=== PATIENT | female | born 1965 | race Caucasian/White ===

== ENCOUNTER 2016-12-20 15:21 | Observation (INO) ==
[2016-12-20] MEDS ORDERED: Aspirin 325 MG TABLET PO ONE (15:35)
--- NOTE | 2016-12-20 15:59 | Emergency Department Note ---
Disposition Clinical Impression: Chest pain of uncertain etiology Disposition: Admitted As Inpatient Condition: Fair Referrals: Ghazal Zepeda CNP [Primary Care Provider] - Forms: ED Satisfaction Letter Chest Pain HPI - General Chief Complaint: ED Chest Pain Stated Complaint: chest pain Time Seen by Provider: 12/20/16 15:28 Source: patient Limitations: no limitations Vital Signs Reviewed: Yes Nursing Notes Reviewed: Yes - History of Present Illness HPI Narrative: 51-year-old female presents to the ED 1.5 hours after onset (14:00) of acute substernal chest pressure radiating into the left jaw. Onset was at rest, pain is moderate to severe, associated with diaphoresis, nausea, and general fatigue. Pain has been constant since onset. 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 Denies radiation to mid back, tearing sensation, vomiting, shortness of air, syncope, or leg edema. Has had prior chest pains in the past with negative workup. No known cardiac history. No known hypertension, diabetes, is not a smoker, and does not have hyperlipidemia to her knowledge. Denies history of DVT or PE, no recent surgeries, no hemoptysis, no known active malignancy. Well 's Score for PE low risk. PERC positive. Pertinent family history includes father passing at the age of 59 cardiac arrest. Severity scale (1-10): 5 - Related Data Home Medications Medication Instructions Recorded Confirmed Citalopram 11/21/14 11/21/14 Levothyroxine 11/21/14 11/21/14 Wellbutrin 11/21/14 11/21/14 Previous Rx's Medication Instructions Recorded Ciprofloxacin HCl [Cipro] 500 mg PO BID 7 Days tablet 11/21/14 Promethazine [Phenergan] 25 mg PO Q6HR PRN #15 tablet 11/21/14 Ciprofloxacin [Cipro] 500 mg PO BID 7 Days tablet 05/19/15 Phenazopyridine HCl [Pyridium] 200 mg PO TID 2 Days tab 05/19/15 Acetaminophen [Tylenol] 650 mg PO Q6HR PRN #10 tablet 07/16/15 Ciprofloxacin [Cipro] 500 mg PO BID 10 Days tablet 07/16/15 Phenazopyridine HCl [Pyridium] 200 mg PO TID 2 Days tab 07/16/15 Ondansetron ODT [Zofran ODT] 4 mg SL Q8HR PRN #30 tab.rapdis 07/19/15 cephALEXin [Keflex] 500 mg PO BID #10 capsule 07/19/15 Albuterol Sulfate [Albuterol 2 puff IH QID 2 Days inhaler 06/28/16 Inhaler] Benzonatate [Tessalon] 200 mg PO TID PRN #20 capsule 06/28/16 Doxycycline 100 mg PO BID #14 capsule 06/28/16 predniSONE [PredniSONE] 20 mg PO BID 5 Days tablet 06/28/16 Ibuprofen [Motrin] 600 mg PO Q6HR PRN #20 tab 10/29/16 Allergies Allergy/AdvReac Type Severity Reaction Status Date / Time Sulfa (Sulfonamide Allergy See Verified 11/19/14 21:08 Antibiotics) Comments sulfamethoxazole Allergy See Verified 11/19/14 21:08 [From Bactrim] Comments trimethoprim [From Bactrim] Allergy See Verified 11/19/14 21:08 Comments Review of Systems: As Per HPI Chest Pain PMH - Past Medical History Medical history: Reports: non-contributory, thyroid disease (No recent medication changes or dose adjustments), other Surgical history: Reports: appendectomy, breast surgery, cholecystectomy, hysterectomy Psychiatric history: Reports: no psych history - Social History Smoking Status: Never smoker Alcohol use: Reports: none Drug use: Reports: none Physical Exam - General Limitations: no limitations General appearance: alert - Head Head exam: atraumatic - Eye Eye exam: Present: PERRL, EOMI. Absent: scleral icterus, conjunctival injection - ENT ENT exam: mucous membranes moist - Chest Chest inspection: Present: symmetric chest wall rise - Respiratory Respiratory exam: Present: normal lung sounds bilaterally. Absent: respiratory distress, wheezes, stridor, accessory muscle use - Cardiovascular Cardiovascular exam: Present: regular rate, normal rhythm. Absent: systolic murmur, diastolic murmur, +S3, +S4 - Abdominal Exam Abdominal exam: Present: soft, Non-Tender. Absent: distention, guarding, rebound, rigidity - Extremities Exam Extremities exam: Present: pedal edema - Back Exam Back exam: Absent: tenderness - Neurological Exam Neurological exam: Present: alert, oriented X3 - Psychiatric Psychiatric exam: Present: normal affect - Skin Skin exam: Present: normal color. Absent: cyanosis, pallor, mottled Course Course Narrative: History concerning for ACS; initiated ACS workup including EKG, troponin, chest x-ray. Sublingual nitro times two relieved pain. Given 1L bolus of normal saline. Initial and repeat EKG negative. Troponin negative. Chest x-ray negative. PERC positive due to SpO2 of 93%; d-dimer negative. Patient's blood pressure has been borderline low throughout ED course. - Reevaluation(s) Reevaluation #1: Initial chest pain did resolve after 2 doses of sublingual nitro; chest pain returned after about an hour. Blood pressures are stable, patient appearances stable as well, heart sounds normal, lung sounds normal, pulses 2+ bilaterally in upper & lower extremities. Vital Signs Temperature 98.3 F 12/20/16 15:23 Pulse Rate 92 12/20/16 15:23 Respiratory Rate 16 12/20/16 15:23 Blood Pressure 136/94 12/20/16 15:23 O2 Sat by Pulse Oximetry 93 12/20/16 15:23 Temperature 98.3 F 12/20/16 15:23 Pulse Rate 83 12/20/16 17:23 Respiratory Rate 16 12/20/16 17:23 Blood Pressure 102/69 12/20/16 17:23 O2 Sat by Pulse Oximetry 93 12/20/16 17:23 Oxygen Delivery Oxygen Delivery Room Air Chest Pain - MDM Narrative Medical decision making narrative: I examined this patient and my medical decision-making was reviewed with the Resident Physician. I agree with the documented findings, disposition and treatment plan as described except to the extent set forth below. Patient seen and evaluated by Dr. Dang and myself, I agree with his evaluation and management plan I supervised the care of the patient's stay. Patient had chest pain left-sided her chest going up into her neck that was a pressure sensation while she was driving her car. She said she had similar pain just in her arm a week ago and then once before she had this too. She has not had a medically evaluated she said. She does not take aspirin she is 89 control pills she does not smoke she does have a dad had first [place] and at the age of 61. She states that she does not do any drugs of abuse. Regular cardiac workup on her and then reassess. She may need admission. She is in agreement with this initial plan. Chest X-Ray 12/20/16 16:21 IMPRESSION: No acute process. D/ / Alec Camacho MD / Alec Camacho MD Interpreting Provider: Alec Camacho MD Patient's initial EKG done at 1527 hrs. shows a sinus rhythm, rate 83, QRS is 78 , QTC is 394, Q waves in the inferior leads, no signs of acute ischemia, compared to an EKG that was done in 2016 shows no changes except for Q waves in the inferior leads are more prominent. Repeat EKG after nitroglycerin trial and her pain has decreased. This was done at 1710 hrs.: Sinus rhythm rate 80, has the same prominent Q waves in the inferior leads but no signs of acute ischemia QRS is 81 and QTC is 412. She is getting finish up her nitroglycerin trout this time. 19:13 -- patient tells me chest pain has resumed. Patient generally feels fatigued. Denies any other new symptoms at this time including shortness of air. Despite heart score of 3, patient would benefit from observation for ACS rule out. Discussed this with patient who is agreeable to this plan. Spoke with hospitalist at 1945 who states he will see and admit patient for r/o [place]. - Lab Data Lab results reviewed: Yes I reviewed the patient's lab results. Lab results narrative: Laboratory Last Values WBC 6.1 K/mcL (4.3-11.1) 12/20/16 17:13 RBC 4.59 M/mcL (3.82-4.97) 12/20/16 17:13 Hgb 13.1 g/dL (11.5-15.4) 12/20/16 17:13 Hct 41.3 % (35.3-44.9) 12/20/16 17:13 MCV 90.0 fL (83.0-100.0) 12/20/16 17:13 MCH 28.5 pg (28.0-33.3) 12/20/16 17:13 MCHC 31.7 g/dL (31.6-35.5) 12/20/16 17:13 RDW 13.3 % (11.5-14.5) 12/20/16 17:13 Plt Count 287 K/mcL (140-400) 12/20/16 17:13 MPV 10.0 fL (9.4-12.4) 12/20/16 17:13 Immature Gran % 0.2 % (0-4) 12/20/16 17:13 Seg Neutrophils % 51.8 % 12/20/16 17:13 Lymphocytes % 37.3 % 12/20/16 17:13 Monocytes % 6.7 % 12/20/16 17:13 Eosinophils % 3.3 % 12/20/16 17:13 Basophils % 0.7 % 12/20/16 17:13 Neutrophils # 3.2 K/mcL (1.6-8.9) 12/20/16 17:13 Lymphocytes # 2.3 K/mcL (0.6-4.6) 12/20/16 17:13 Monocytes # 0.4 K/mcL (0.0-1.3) 12/20/16 17:13 Eosinophils # 0.2 K/mcL (0.0-0.6) 12/20/16 17:13 Basophils # 0.0 K/mcL (0.0-0.2) 12/20/16 17:13 D-Dimer 361 ng/mLFEU (0-500) 12/20/16 15:35 Sodium 141 mEq/L (136-145) 12/20/16 17:14 Potassium 4.0 mEq/L (3.5-4.5) 12/20/16 17:14 Chloride 107 mEq/L (98-109) 12/20/16 17:14 Carbon Dioxide 22 mEq/L (19-29) 12/20/16 17:14 BUN 23 mg/dL (7-20) H 12/20/16 17:14 Creatinine 1.08 mg/dL (0.57-1.11) 12/20/16 17:14 Est GFR ( Amer) > 60 (> 60) 12/20/16 17:14 Est GFR (Non-Af Amer) 54 (> 60) L 12/20/16 17:14 BUN/Creatinine Ratio 21 (6-26) 12/20/16 17:14 Glucose 95 mg/dL (70-99) 12/20/16 17:14 Calculated Osmolality 295 (280-300) 12/20/16 17:14 Calcium 9.1 mg/dL (8.6-10.8) 12/20/16 17:14 Troponin I 0.00 ng/mL (0-0.03) 12/20/16 15:45 Urine Color Yellow (Yellow) 12/20/16 18:00 Urine Clarity Clear (Clear) 12/20/16 18:00 Urine pH 6.0 pH Units (5.0-8.0) 12/20/16 18:00 Ur Specific [place] 1.025 (1.010-1.025) 12/20/16 18:00 Urine Protein Negative mg/dL (Neg-Trace) 12/20/16 18:00 Urine Glucose (UA) Normal mg/dL (Normal) 12/20/16 18:00 Urine Ketones Negative mg/dL (Negative) 12/20/16 18:00 Urine Blood Negative (Negative) 12/20/16 18:00 Urine Nitrite Negative (Negative) 12/20/16 18:00 Urine Bilirubin Negative (Negative) 12/20/16 18:00 Urine Urobilinogen Normal mg/dL (Normal) 12/20/16 18:00 Ur Leukocyte Esterase Negative (Negative) 12/20/16 18:00 Ur Culture Indicated? NO (NO) 12/20/16 18:00 Laboratory Last Values WBC 6.1 K/mcL (4.3-11.1) 12/20/16 17:13 RBC 4.59 M/mcL (3.82-4.97) 12/20/16 17:13 Hgb 13.1 g/dL (11.5-15.4) 12/20/16 17:13 Hct 41.3 % (35.3-44.9) 12/20/16 17:13 MCV 90.0 fL (83.0-100.0) 12/20/16 17:13 MCH 28.5 pg (28.0-33.3) 12/20/16 17:13 MCHC 31.7 g/dL (31.6-35.5) 12/20/16 17:13 RDW 13.3 % (11.5-14.5) 12/20/16 17:13 Plt Count 287 K/mcL (140-400) 12/20/16 17:13 MPV 10.0 fL (9.4-12.4) 12/20/16 17:13 Immature Gran % 0.2 % (0-4) 12/20/16 17:13 Seg Neutrophils % 51.8 % 12/20/16 17:13 Lymphocytes % 37.3 % 12/20/16 17:13 Monocytes % 6.7 % 12/20/16 17:13 Eosinophils % 3.3 % 12/20/16 17:13 Basophils % 0.7 % 12/20/16 17:13 Neutrophils # 3.2 K/mcL (1.6-8.9) 12/20/16 17:13 Lymphocytes # 2.3 K/mcL (0.6-4.6) 12/20/16 17:13 Monocytes # 0.4 K/mcL (0.0-1.3) 12/20/16 17:13 Eosinophils # 0.2 K/mcL (0.0-0.6) 12/20/16 17:13 Basophils # 0.0 K/mcL (0.0-0.2) 12/20/16 17:13 D-Dimer 361 ng/mLFEU (0-500) 12/20/16 15:35 Sodium 141 mEq/L (136-145) 12/20/16 17:14 Potassium 4.0 mEq/L (3.5-4.5) 12/20/16 17:14 Chloride 107 mEq/L (98-109) 12/20/16 17:14 Carbon Dioxide 22 mEq/L (19-29) 12/20/16 17:14 BUN 23 mg/dL (7-20) H 12/20/16 17:14 Creatinine 1.08 mg/dL (0.57-1.11) 12/20/16 17:14 Est GFR ( Amer) > 60 (> 60) 12/20/16 17:14 Est GFR (Non-Af Amer) 54 (> 60) L 12/20/16 17:14 BUN/Creatinine Ratio 21 (6-26) 12/20/16 17:14 Glucose 95 mg/dL (70-99) 12/20/16 17:14 Calculated Osmolality 295 (280-300) 12/20/16 17:14 Calcium 9.1 mg/dL (8.6-10.8) 12/20/16 17:14 Troponin I 0.00 ng/mL (0-0.03) 12/20/16 15:45 Urine Color Yellow (Yellow) 12/20/16 18:00 Urine Clarity Clear (Clear) 12/20/16 18:00 Urine pH 6.0 pH Units (5.0-8.0) 12/20/16 18:00 Ur Specific [place] 1.025 (1.010-1.025) 12/20/16 18:00 Urine Protein Negative mg/dL (Neg-Trace) 12/20/16 18:00 Urine Glucose (UA) Normal mg/dL (Normal) 12/20/16 18:00 Urine Ketones Negative mg/dL (Negative) 12/20/16 18:00 Urine Blood Negative (Negative) 12/20/16 18:00 Urine Nitrite Negative (Negative) 12/20/16 18:00 Urine Bilirubin Negative (Negative) 12/20/16 18:00 Urine Urobilinogen Normal mg/dL (Normal) 12/20/16 18:00 Ur Leukocyte Esterase Negative (Negative) 12/20/16 18:00 Ur Culture Indicated? NO (NO) 12/20/16 18:00 Result diagrams: 12/20/16 17:13 12/20/16 17:14 Lab Results 12/20/16 12/20/16 12/20/16 Range/Units 15:35 15:45 17:13 WBC 6.1 (4.3-11.1) K/mcL RBC 4.59 (3.82-4.97) M/mcL Hgb 13.1 (11.5-15.4) g/dL Hct 41.3 (35.3-44.9) % MCV 90.0 (83.0-100.0) fL MCH 28.5 (28.0-33.3) pg MCHC 31.7 (31.6-35.5) g/dL RDW 13.3 (11.5-14.5) % Plt Count 287 (140-400) K/mcL MPV 10.0 (9.4-12.4) fL Immature Gran % 0.2 (0-4) % Seg Neutrophils % 51.8 % Lymphocytes % 37.3 % Monocytes % 6.7 % Eosinophils % 3.3 % Basophils % 0.7 % Neutrophils # 3.2 (1.6-8.9) K/mcL Lymphocytes # 2.3 (0.6-4.6) K/mcL Monocytes # 0.4 (0.0-1.3) K/mcL Eosinophils # 0.2 (0.0-0.6) K/mcL Basophils # 0.0 (0.0-0.2) K/mcL D-Dimer 361 (0-500) ng/mLFEU Sodium (136-145) mEq/L Potassium (3.5-4.5) mEq/L Chloride (98-109) mEq/L Carbon Dioxide (19-29) mEq/L BUN (7-20) mg/dL Creatinine (0.57-1.11) mg/dL Est GFR ( Amer) (> 60) Est GFR (Non-Af Amer) (> 60) BUN/Creatinine Ratio (6-26) Glucose (70-99) mg/dL Calculated Osmolality (280-300) Calcium (8.6-10.8) mg/dL Troponin I 0.00 (0-0.03) ng/mL 12/20/16 Range/Units 17:14 WBC (4.3-11.1) K/mcL RBC (3.82-4.97) M/mcL Hgb (11.5-15.4) g/dL Hct (35.3-44.9) % MCV (83.0-100.0) fL MCH (28.0-33.3) pg MCHC (31.6-35.5) g/dL RDW (11.5-14.5) % Plt Count (140-400) K/mcL MPV (9.4-12.4) fL Immature Gran % (0-4) % Seg Neutrophils % % Lymphocytes % % Monocytes % % Eosinophils % % Basophils % % Neutrophils # (1.6-8.9) K/mcL Lymphocytes # (0.6-4.6) K/mcL Monocytes # (0.0-1.3) K/mcL Eosinophils # (0.0-0.6) K/mcL Basophils # (0.0-0.2) K/mcL D-Dimer (0-500) ng/mLFEU Sodium 141 (136-145) mEq/L Potassium 4.0 (3.5-4.5) mEq/L Chloride 107 (98-109) mEq/L Carbon Dioxide 22 (19-29) mEq/L BUN 23 H (7-20) mg/dL Creatinine 1.08 (0.57-1.11) mg/dL Est GFR ( Amer) > 60 (> 60) Est GFR (Non-Af Amer) 54 L (> 60) BUN/Creatinine Ratio 21 (6-26) Glucose 95 (70-99) mg/dL Calculated Osmolality 295 (280-300) Calcium 9.1 (8.6-10.8) mg/dL Troponin I (0-0.03) ng/mL - Radiology Data Radiology results reviewed: Yes I reviewed the patient's radiology results. Chest X-Ray 12/20/16 16:21 IMPRESSION: No acute process. D/ / Alec Camacho MD / Alec Camacho MD Interpreting Provider: Aelc Camacho MD Chest X-Ray 12/20/16 16:21 IMPRESSION: No acute process. D/ / Alec Camacho MD / Alec Camacho MD Interpreting Provider: Alec Camacho MD Heart Score - Score History: Moderately Suspicious EKG: Normal Age: 45-65 Risk Factors: 1-2 risk factors Troponin: Less than normal limit HEART Score Total: 3
[2016-12-20] MEDS: Ondansetron 4 MG/2 ML VIAL IVP PRN (16:14)
[2016-12-20] MEDS: Nitroglycerin 0.4 MG TAB.SUBL SL PRN ×3 (16:15→17:24)
[2016-12-20] MEDS ORDERED: 0.9 % Sodium Chloride 1,000 ML IVC ONE (16:50)
[2016-12-20 17:18] LABS: Basophils % 0.7 %; Eosinophils # 0.2 K/mcL (0.0-0.6); Eosinophils % 3.3 %; Hematocrit 41.3 % (35.3-44.9); Hemoglobin 13.1 g/dL (11.5-15.4); Immature Granulocytes % 0.2 % (0-4); Lymphocytes # 2.3 K/mcL (0.6-4.6); Lymphocytes % 37.3 %; Mean Corpuscular HGB Conc 31.7 g/dL (31.6-35.5); Mean Corpuscular Hemoglobin 28.5 pg (28.0-33.3); Monocytes # 0.4 K/mcL (0.0-1.3); Monocytes % 6.7 %; Neutrophils # 3.2 K/mcL (1.6-8.9); Platelet Count 287 K/mcL (140-400); Red Blood Count 4.59 M/mcL (3.82-4.97); Red Cell Distribution Width 13.3 % (11.5-14.5); Segmented Neutrophils % 51.8 %
[2016-12-20 17:27] LABS: BUN/Creatinine Ratio 21 (6-26); Blood Urea Nitrogen 23 mg/dL (7-20); Calcium 9.1 mg/dL (8.6-10.8); Carbon Dioxide 22 mEq/L (19-29); Chloride 107 mEq/L (98-109); Glucose 95 mg/dL (70-99); Osmolality,Calculated 295 (280-300); Sodium 141 mEq/L (136-145); eGFR For African Americans > 60 (> 60); eGFR For Non-African Americans 54 (> 60)
[2016-12-20 18:19] LABS: Bilirubin,Urine Negative (Negative); Blood,Urine Negative (Negative); Clarity,Urine Clear (Clear); Color,Urine Yellow (Yellow); Glucose,Urine (UA) Normal (Normal); Ketones,Urine Negative (Negative); Leukocyte Esterase,Urine Negative (Negative); Nitrite,Urine Negative (Negative); Protein,Urine Negative (Neg-Trace); Specific Gravity,Urine 1.025 (1.010-1.025); Urobilinogen,Urine Normal (Normal)
--- NOTE | 2016-12-20 18:22 | Emergency Department Note ---
Disposition Clinical Impression: Chest pain of uncertain etiology Disposition: Admitted As Inpatient Condition: Fair General Adult HPI - General Chief complaint: ED Chest Pain Stated complaint: chest pain Time Seen by Provider: 12/20/16 15:28 Source: patient Limitations: no limitations Nursing Notes Reviewed: Yes Vital Signs Reviewed: Yes - History of Present Illness Pain Scale: 5 - Related Data Home Medications Medication Instructions Recorded Confirmed Citalopram 11/21/14 11/21/14 Levothyroxine 11/21/14 11/21/14 Wellbutrin 11/21/14 11/21/14 Previous Rx's Medication Instructions Recorded Ciprofloxacin HCl [Cipro] 500 mg PO BID 7 Days tablet 11/21/14 Promethazine [Phenergan] 25 mg PO Q6HR PRN #15 tablet 11/21/14 Ciprofloxacin [Cipro] 500 mg PO BID 7 Days tablet 05/19/15 Phenazopyridine HCl [Pyridium] 200 mg PO TID 2 Days tab 05/19/15 Acetaminophen [Tylenol] 650 mg PO Q6HR PRN #10 tablet 07/16/15 Ciprofloxacin [Cipro] 500 mg PO BID 10 Days tablet 07/16/15 Phenazopyridine HCl [Pyridium] 200 mg PO TID 2 Days tab 07/16/15 Ondansetron ODT [Zofran ODT] 4 mg SL Q8HR PRN #30 tab.rapdis 07/19/15 cephALEXin [Keflex] 500 mg PO BID #10 capsule 07/19/15 Albuterol Sulfate [Albuterol 2 puff IH QID 2 Days inhaler 06/28/16 Inhaler] Benzonatate [Tessalon] 200 mg PO TID PRN #20 capsule 06/28/16 Doxycycline 100 mg PO BID #14 capsule 06/28/16 predniSONE [PredniSONE] 20 mg PO BID 5 Days tablet 06/28/16 Ibuprofen [Motrin] 600 mg PO Q6HR PRN #20 tab 10/29/16 Allergies Allergy/AdvReac Type Severity Reaction Status Date / Time Sulfa (Sulfonamide Allergy See Verified 11/19/14 21:08 Antibiotics) Comments sulfamethoxazole Allergy See Verified 11/19/14 21:08 [From Bactrim] Comments trimethoprim [From Bactrim] Allergy See Verified 11/19/14 21:08 Comments Past Medical History - Past Medical History Medical history: Reports: thyroid disease, other Surgical history: Reports: appendectomy, breast surgery, cholecystectomy, hysterectomy Psychiatric history: Reports: no psych history - Social History Smoking Status: Never smoker Smokeless Tobacco Status: No Alcohol use: Reports: none Drug use: Reports: none Physical Exam - General Limitations: no limitations General appearance: alert Course Vital Signs Temperature 98.3 F 12/20/16 15:23 Pulse Rate 92 12/20/16 15:23 Respiratory Rate 16 12/20/16 15:23 Blood Pressure 136/94 12/20/16 15:23 O2 Sat by Pulse Oximetry 93 12/20/16 15:23 Temperature 98.3 F 12/20/16 15:23 Pulse Rate 74 12/20/16 20:00 Respiratory Rate 16 12/20/16 20:00 Blood Pressure 101/64 12/20/16 20:00 O2 Sat by Pulse Oximetry 96 12/20/16 20:00 Oxygen Delivery Oxygen Delivery Room Air Medical Decision Making - MDM Narrative Medical decision making narrative: I examined this patient and my medical decision-making was reviewed with the Resident Physician. I agree with the documented findings, disposition and treatment plan as described except to the extent set forth below. This is an update from a previous chart. Patient's pain free. She is low risk on well's score for PE and her d-dimer is normal. She is pain-free at this time. She has had a UTI in the past so we decided to go and check her urine also plan is to admit her to the hospital chest pain rule out ACS and make sure she does not have a UTI. She is in agreement with this plan. 1930 hrs.: Patient has pain-free at this time. She is can be admitted to the hospitalist service. Impressions chest pain rule out ACS. - Lab Data Result diagrams: 12/20/16 17:13 12/20/16 17:14 Lab Results 12/20/16 12/20/16 12/20/16 Range/Units 15:35 15:45 17:13 WBC 6.1 (4.3-11.1) K/mcL RBC 4.59 (3.82-4.97) M/mcL Hgb 13.1 (11.5-15.4) g/dL Hct 41.3 (35.3-44.9) % MCV 90.0 (83.0-100.0) fL MCH 28.5 (28.0-33.3) pg MCHC 31.7 (31.6-35.5) g/dL RDW 13.3 (11.5-14.5) % Plt Count 287 (140-400) K/mcL MPV 10.0 (9.4-12.4) fL Immature Gran % 0.2 (0-4) % Seg Neutrophils % 51.8 % Lymphocytes % 37.3 % Monocytes % 6.7 % Eosinophils % 3.3 % Basophils % 0.7 % Neutrophils # 3.2 (1.6-8.9) K/mcL Lymphocytes # 2.3 (0.6-4.6) K/mcL Monocytes # 0.4 (0.0-1.3) K/mcL Eosinophils # 0.2 (0.0-0.6) K/mcL Basophils # 0.0 (0.0-0.2) K/mcL D-Dimer 361 (0-500) ng/mLFEU Sodium (136-145) mEq/L Potassium (3.5-4.5) mEq/L Chloride (98-109) mEq/L Carbon Dioxide (19-29) mEq/L BUN (7-20) mg/dL Creatinine (0.57-1.11) mg/dL Est GFR ( Amer) (> 60) Est GFR (Non-Af Amer) (> 60) BUN/Creatinine Ratio (6-26) Glucose (70-99) mg/dL Calculated Osmolality (280-300) Calcium (8.6-10.8) mg/dL Troponin I 0.00 (0-0.03) ng/mL Urine Color (Yellow) Urine Clarity (Clear) Urine pH (5.0-8.0) pH Units Ur Specific [place] (1.010-1.025) Urine Protein (Neg-Trace) mg/dL Urine Glucose (UA) (Normal) mg/dL Urine Ketones (Negative) mg/dL Urine Blood (Negative) Urine Nitrite (Negative) Urine Bilirubin (Negative) Urine Urobilinogen (Normal) mg/dL Ur Leukocyte Esterase (Negative) Ur Culture Indicated? (NO) 12/20/16 12/20/16 Range/Units 17:14 18:00 WBC (4.3-11.1) K/mcL RBC (3.82-4.97) M/mcL Hgb (11.5-15.4) g/dL Hct (35.3-44.9) % MCV (83.0-100.0) fL MCH (28.0-33.3) pg MCHC (31.6-35.5) g/dL RDW (11.5-14.5) % Plt Count (140-400) K/mcL MPV (9.4-12.4) fL Immature Gran % (0-4) % Seg Neutrophils % % Lymphocytes % % Monocytes % % Eosinophils % % Basophils % % Neutrophils # (1.6-8.9) K/mcL Lymphocytes # (0.6-4.6) K/mcL Monocytes # (0.0-1.3) K/mcL Eosinophils # (0.0-0.6) K/mcL Basophils # (0.0-0.2) K/mcL D-Dimer (0-500) ng/mLFEU Sodium 141 (136-145) mEq/L Potassium 4.0 (3.5-4.5) mEq/L Chloride 107 (98-109) mEq/L Carbon Dioxide 22 (19-29) mEq/L BUN 23 H (7-20) mg/dL Creatinine 1.08 (0.57-1.11) mg/dL Est GFR ( Amer) > 60 (> 60) Est GFR (Non-Af Amer) 54 L (> 60) BUN/Creatinine Ratio 21 (6-26) Glucose 95 (70-99) mg/dL Calculated Osmolality 295 (280-300) Calcium 9.1 (8.6-10.8) mg/dL Troponin I (0-0.03) ng/mL Urine Color Yellow (Yellow) Urine Clarity Clear (Clear) Urine pH 6.0 (5.0-8.0) pH Units Ur Specific [place] 1.025 (1.010-1.025) Urine Protein Negative (Neg-Trace) mg/dL Urine Glucose (UA) Normal (Normal) mg/dL Urine Ketones Negative (Negative) mg/dL Urine Blood Negative (Negative) Urine Nitrite Negative (Negative) Urine Bilirubin Negative (Negative) Urine Urobilinogen Normal (Normal) mg/dL Ur Leukocyte Esterase Negative (Negative) Ur Culture Indicated? NO (NO)
[2016-12-20] MEDS ORDERED: *HR* HYDROmorphone (PF) 1 MG/ML SYRINGE IVP ONE (18:59)
[2016-12-20] MEDS ORDERED: Acetaminophen 325 MG TABLET PO PRN (19:55)
[2016-12-20] MEDS ORDERED: *HR* HYDROcodone/Acet 5/325 mg TABLET PO PRN (19:55)
[2016-12-20] MEDS ORDERED: Naloxone 0.4 MG/ML INJ IVP PRN (19:55)
[2016-12-20] MEDS ORDERED: *HR* Morphine 2 MG/ML SYRINGE IVP PRN (19:55)
--- NOTE | 2016-12-20 21:00 | Internal Med History&Physical ---
Date of Encounter: 12/20/16 Time of Encounter: 20:00 Assessment and Plan (1) Chest pain Current visit: Yes Status: Acute Will admit the pt into Tele for observation Will place her on clinical research monitor check serial troponin so far negative troponin EKG reviewed - showing NSR with VR 83, No ST T changes will start her on ASA, Nitro PRN and Morphine IV PRN for pain Will check FLP in AM Will get stress test in AM since pt is high risk for ACS Qualifiers: Qualified Code(s): R07.9 - Chest pain, unspecified (2) Hypothyroidism (acquired) Current visit: Yes Status: Acute will check TSH in AM cont home dose for now (3) Depression Current visit: Yes Status: Chronic Pt looks more depressed Resumed home meds Qualifiers: Qualified Code(s): F32.9 - Major depressive disorder, single episode, unspecified Internal Medicine - H&P: HPI Chief complaint: Chest pain Admitted From: Emergency Dept Plans for Post Hospital Care: Home History of present illness: Ms. Kevin is a 51 year old female presented to the ED 1.5 hours after onset ( 14:00) of acute substernal chest pressure radiating into the left jaw. Onset was at rest, pain is moderate to severe, 6/10 in severity, associated with diaphoresis, nausea, and general fatigue. Pain has been constant since onset. Denies radiation to mid back, tearing sensation, vomiting, shortness of breath, syncope. Has had prior chest pains in the past with negative workup and normal stress test few years ago. No known cardiac history. No known hypertension, diabetes, is not a smoker, and does not have hyperlipidemia to her knowledge. Pertinent family history includes father passing at the age of 59 cardiac arrest and multiple strokes. Pt stated she is working 2 jobs and lot of stress lately.. feeling more depressed too. Past Med Surg Social Fam HX - Past Medical History Medical history: thyroid disease, other Psychiatric history: no psych history - Past Surgical History Surgical History: appendectomy, breast surgery, cholecystectomy, hysterectomy - Social History Smoking Status: Never smoker Smokeless Tobacco Status: No Alcohol use: none Drug use: none - Family History Father Hx Family Cardiac Disorders: Yes (NH) Hx Family Neurologic Disorders: Yes (CVA) Internal Medicine - H&P: Meds Ciprofloxacin HCl [Cipro] 500 mg PO BID 7 Days tablet 11/21/14 [Rx] Citalopram 11/21/14 [History] Levothyroxine 11/21/14 [History] Promethazine [Phenergan] 25 mg PO Q6HR PRN #15 tablet 11/21/14 [Rx] Wellbutrin 11/21/14 [History] Ciprofloxacin [Cipro] 500 mg PO BID 7 Days tablet 05/19/15 [Rx] Phenazopyridine HCl [Pyridium] 200 mg PO TID 2 Days tab 05/19/15 [Rx] Acetaminophen [Tylenol] 650 mg PO Q6HR PRN #10 tablet 07/16/15 [Rx] Ciprofloxacin [Cipro] 500 mg PO BID 10 Days tablet 07/16/15 [Rx] Phenazopyridine HCl [Pyridium] 200 mg PO TID 2 Days tab 07/16/15 [Rx] Ondansetron ODT [Zofran ODT] 4 mg SL Q8HR PRN #30 tab.rapdis 07/19/15 [Rx] cephALEXin [Keflex] 500 mg PO BID #10 capsule 07/19/15 [Rx] Albuterol Sulfate [Albuterol Inhaler] 2 puff IH QID 2 Days inhaler 06/28/16 [Rx ] Benzonatate [Tessalon] 200 mg PO TID PRN #20 capsule 06/28/16 [Rx] Doxycycline 100 mg PO BID #14 capsule 06/28/16 [Rx] predniSONE [PredniSONE] 20 mg PO BID 5 Days tablet 06/28/16 [Rx] Ibuprofen [Motrin] 600 mg PO Q6HR PRN #20 tab 10/29/16 [Rx] 3 Allergy/AdvReac Type Severity Reaction Status Date / Time Sulfa (Sulfonamide Allergy See Verified 11/19/14 21:08 Antibiotics) Comments sulfamethoxazole Allergy See Verified 11/19/14 21:08 [From Bactrim] Comments trimethoprim [From Bactrim] Allergy See Verified 11/19/14 21:08 Comments All Systems PM: A 10-system review of systems was performed and is negative for pertinent findings except as documented above in the HPI. Review of systems: All the systems are reviewed everything is benign except the systems and symptoms I mentioned in the history of present illness - Constitutional Vitals: Temp Pulse Resp BP Pulse Ox 98.3 F 74 16 98/66 96 12/20/16 15:23 12/20/16 20:00 12/20/16 20:48 12/20/16 20:48 12/20/16 20:00 General appearance: Present: A&O X 3, no acute distress, answers questions appropriately - Head Head exam: Present: atraumatic, normal inspection - Respiratory Respiratory exam: Present: decreased breath sounds. Absent: rales, respiratory distress, rhonchi, wheezes - Cardiovascular Cardiovascular exam: Present: RRR, +S1, +S2. Absent: systolic murmur - GI/Abdominal GI/Abdominal exam: Present: normal bowel sounds, soft. Absent: rebound, rigid, tenderness - Extremities Exam Extremities exam: Absent: pedal edema, tenderness - Back Exam Back exam: Absent: CVA tenderness (L), CVA tenderness (R) - Neurological Exam Neurological exam: Present: alert, oriented X3 - Psychiatric Psychiatric exam: Present: depressed. Absent: homicidal ideation, suicidal ideation Internal Med - H&P Results - Labs CBC & Chem 7: 12/20/16 17:13 12/20/16 17:14
[2016-12-20] MEDS: Famotidine 20 MG TABLET PO SCH (21:31)
[2016-12-21] MEDS: Ondansetron 4 MG/2 ML VIAL IVP PRN (03:27)
[2016-12-21 06:17] LABS: Chol/HDL Ratio 4.7 (0-4.9)
[2016-12-21] MEDS ORDERED: Regadenoson 0.4 MG/5 ML SYRINGE IVP ONE (06:28)
[2016-12-21] MEDS ORDERED: Aspirin Enteric Coated 81 MG Tablet PO SCH (09:00)
[2016-12-21] MEDS: Famotidine 20 MG TABLET PO SCH (10:04)
[2016-12-21 11:04] VITALS: BP 106/68
--- NOTE | 2016-12-21 11:39 | Nuclear Medicine Stress Report ---
Low Level Regadenoson Name: Nora Kevin Date of Study: 12/21/2016 Date: 1965 Ht: 63.0 in Medical Record#: [id number] Age: 51 Wt: 203.0 lb Gender: Female Order #: [id number] Location: [facility] Room: [facility] ([place]) Supervising Provider: Lionel Humphreys CNP Reading Physician: Carlito Tesfaye MD, FACC Ordering Physician: Sherry Andino CNP Stress Technologist: Lenny Martin VAT OPERATOR, [facility] Explosive Operator Fuse: Josep Christine Indications: Chest Pain Impression: Perfusion imaging was negative for ischemia or infarct. SDS - 0 Exercise ECG was non-diagnostic for ischemia. Exercise capacity was poor. Patient had no chest pain with stress. No arrhythmias noted with stress. Gated EF = >70%. There is no evidence of TID. The LV is not dilated. Stress Test Summary: Stress Test Type: Low level pharmacologic Regadenoson 0.4mg/5ml given IV Baseline Information: Initial Heart Rate: 68 Blood Pressure: 90/68 Stress Information: Stress Time: 4 min 00 sec Test Terminated Due to (primary): As per protocol Maximum Blood Pressure: 104/68 Maximum Heart Rate: 120 Percent Maximum Heart Rate Achieved: 70 Double Product: 21283 METS Reached: 2.1 Symptoms: Shortness of breath Nuclear Summary: SPECT myocardial perfusion imaging using Tc99m Sestamibi given intravenously was performed at rest and following cardiac stress testing. The resting images were obtained following initial dose of 11.3 mCi. Following stress an additional dose of 32.4 mCi was given at peak exercise or 30 seconds post regadenoson infusion. Medication Given: Time Medication Dose Units Route Findings: Stress Note * Resting ECG demonstrated normal sinus rhythm. * No baseline arrhythmias were noted. * Exercise ECG is non diagnostic for ischemia due to did not reach target heart rate. Hemodynamic responses * The patient demonstrated a blunted response blood pressure response. Study Quality * Study quality is good. Gated EF > 70% * Gated EF > 70%. Left Ventricle * The left ventricle is not dilated. NORMALS * Normal wall motion. * Normal segmental perfusion in stress. * Normal Segmental Perfusion in rest. TID * No evidence of transient ischemic dilatation. Updated by Carlito Tesfaye MD, FACC on 12/21/2016 11:28:26 AM electronically signed on 12/21/2016 11:32:36 AM with status of Final
--- NOTE | 2016-12-21 12:11 | Discharge Summary ---
Date of Encounter: 12/21/16 Time of Encounter: 11:45 - Discharge Diagnosis (1) Chest pain Priority: Primary Status: Acute Qualifiers: Chest pain type: precordial pain Qualified Code(s): R07.2 - Precordial pain (2) Hypothyroidism (acquired) Priority: Secondary Status: Chronic (3) Depression Priority: Secondary Status: Chronic Qualifiers: Depression Type: unspecified Qualified Code(s): F32.9 - Major depressive disorder, single episode, unspecified - Discharge Medications Home Medications: BuPROPion XL (24 HR) [Wellbutrin Xl] 150 mg PO QAM 12/21/16 [History] Citalopram Hydrobromide [Celexa] 40 mg PO DAILY 12/21/16 [History] Levothyroxine [Synthroid] 125 mcg PO DAILY 12/21/16 [History] Omeprazole [PriLOSEC] 20 mg PO DAILY 12/21/16 [History] Allergies/Adverse Reactions: 3 Allergy/AdvReac Type Severity Reaction Status Date / Time Sulfa (Sulfonamide Allergy See Verified 11/19/14 21:08 Antibiotics) Comments sulfamethoxazole Allergy See Verified 11/19/14 21:08 [From Bactrim] Comments trimethoprim [From Bactrim] Allergy See Verified 11/19/14 21:08 Comments Procedures/tests Complete & Pending: Procedures Performed prior 72 hours Category Date Time Status NM gail perf SPECT multi [NM] Routine Exams 12/20/16 20:55 Taken SP pharm nuclear stress Routine Y 12/21/16 07:30 Completed Date of admission: 12/20/16 20:00 Primary care physician: Ghazal Zepeda CNP Discharging clinician: Teri Gonsales Anticipated date of discharge: 12/21/16 - Patient Status Disposition: Home, Self-Care Condition: Good Functional capacity at discharge: independent ambulation Overall status at discharge: patient is progressing back to baseline - Discharge Instructions Instructions: Chest Pain (DC) Follow Up With: Ghazal Zepeda CNP [Primary Care Provider] - (Appointment has been requested. Office will call patient with date and time.) Additional Instructions: F/up with PCP in 1-2 weeks - Diet and Activity Activity: resume usual activities as tolerated Diet: advance to your usual diet, regular diet Hospital course: Ms. Kevin is a 51 year old female with h/o- hypothyroidism and depression, was admitted with chest pain. Initial labs, EKG and chest XRay done in the ER showed no acute abnormality. Telemetry remained uneventful and serial Troponins remained negative. Nuclear stress test was done which was negative for ischemia or infarct. Patient's pain is probably musculoskeletal and related to work stress and depression. She does look quite depressed with flat affect; reports compliance with Levothyroxine; TSH noted to be normal. Patient is otherwise medically stable for discharge with PCP followup. - Time Spent with Patient Total time spent providing and/or coordinating discharge services: Greater than 30 minutes (40 min) - Constitutional Vitals: Temp Pulse Resp BP Pulse Ox 98.1 F 77 16 106/68 94 12/21/16 11:03 12/21/16 11:03 12/21/16 11:03 12/21/16 11:03 12/21/16 11:03 General appearance: Present: A&O X 3, no acute distress, answers questions appropriately - Respiratory Respiratory exam: Present: CTAB. Absent: accessory muscle use, rales, rhonchi, wheezes - Cardiovascular Cardiovascular exam: Present: RRR, +S1, +S2. Absent: diastolic murmur, gallop, rubs, systolic murmur
--- NOTE | 2016-12-22 19:29 | Electrocardiograph Report ---
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
--- NOTE | 2016-12-22 19:30 | Electrocardiograph Report ---
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
== END 2016-12-21 12:51 | disposition home or self-care (01) ==
LOC: 3BNU 15:21 → EMEROO 15:21 → SUATTDRO 20:00 → 3BNU 21:10
PROVIDERS: ADMIT Family Medicine; ATTEND Internal Medicine